=== PATIENT | male | born 1980 | race Caucasian/White ===

== ENCOUNTER 2022-11-03 17:25 | Emergency (ER) | payer OTHER ==
[~2022-11-03] VITALS: Ht 190.5 cm; Wt 124.7 kg
[~2022-11-03 17:25] MED LIST: PROM25 PO
[2022-11-03] MEDS ORDERED: ONDA4 PO (19:53)
[2022-11-03] MEDS ORDERED: CEPH500 PO (19:53)
== END 2022-11-03 20:00 | disposition home or self-care (01) ==
LOC: ER 17:25
DX: L03.116 Cellulitis of left lower limb (principal); M79.672 Pain in left foot; W22.8XXA Striking against or struck by other objects, initial encounter
CPT/HCPCS: 73630; 99283-25; A9270